=== PATIENT | female | born 1975 | race Hispanic/Latino ===

== ENCOUNTER 2020-06-23 23:00 | Emergency (ER) | payer SELFPAY ==
--- NOTE | 2020-06-23 23:37 | EDPHYS ---
Physician Documentation [facility] Name: Kristian Bee Age: 44 yrs Sex: Female : 1975 Arrival Date: 06/23/2020 Time: 23:02 Bed Waiting Private MD: ED Physician Janna Lilly HPI: 06/23 23:33 This 44 yrs old Female presents to ER via Ambulatory with complaints of Arm jmm Pain. 23:33 The patient or guardian complains of pain. Onset: The symptoms/episode began/occurred 2 jmm month(s) ago. Modifying factors: The symptoms are alleviated by nothing. the symptoms are aggravated by nothing. Associated signs and symptoms: Pertinent negatives: fever, pain, swelling. Patient complaints of right arm pain beginning approx 2 months ago denies trauma, swelling, redness, fever. Denies SOB. Historical: - Allergies: 23:31 No Known Allergies; em - PMHx: 23:31 None; em - PSHx: 23:31 None; em - Immunization history:: Adult Immunizations up to date. - Social history:: Smoking status: Patient denies any tobacco usage or history of. ROS: 23:33 Constitutional: Negative for fever, chills, and weight loss, Cardiovascular: Negative jmm for chest pain, palpitations, and edema, Respiratory: Negative for shortness of breath, cough, wheezing, and pleuritic chest pain. 23:33 MS/extremity: Positive for pain, swelling. 23:33 All other systems are negative. Exam: 23:33 Constitutional: This is a well developed, well nourished patient who is awake, alert, jmm and in no acute distress. Cardiovascular: Regular rate and rhythm. No edema appreciated Respiratory: Normal respirations, no respiratory distress appreciated 23:33 Head/Face: atraumatic. Eyes: EOMI, no conjunctival erythema appreciated ENT: Moist Mucus Membranes Neck: Trachea midline, Supple Chest/axilla: Normal chest wall appearance and motion. Abdomen/GI: Non distended, soft Back: Normal ROM Skin: General appearance color normal 23:33 Musculoskeletal/extremity: no swelling noted to the right upper arm, no erythema, full radial pulse, compartments are soft, NVI. 23:33 Skin: Appearance: Color: normal in color. 23:33 Neuro: Orientation: is normal, Mentation: is normal, Memory: is normal. 23:33 Psych: Behavior/mood is pleasant, cooperative. Vital Signs: 23:29 Pulse 105; Resp 18; Temp 98.2; Pulse Ox 98% on R/A; Weight 81.65 kg; Height 5 ft. 1 in. em (154.94 cm); Pain 8/10; 23:32 BP 138 / 97; em 23:29 Body Mass Index 34.01 (81.65 kg, 154.94 cm) em MDM: 23:35 Data reviewed: vital signs, nurses notes. Counseling: I had a detailed discussion with rl the patient and/or guardian regarding: the historical points, exam findings, and any diagnostic results supporting the discharge/admit diagnosis, the need for outpatient follow up, to return to the emergency department if symptoms worsen or persist or if there are any questions or concerns that arise at home. ED course: Patient is alert and non toxic in appearance in the ED. I do not suspect infectious process. Patient is advised to follow up with ortho for further evaluation. Patient understood and agrees with the plan of care. . 23:36 Patient medically screened. [facility] Administered Medications: No medications were administered Disposition: 06/23/20 23:36 Discharged to Home. Impression: Pain in arm, unspecified. - Condition is Stable. - Discharge Instructions: Musculoskeletal Pain. - Prescriptions for Zanaflex 4 mg Oral Tablet - take 1 tablet by ORAL route every 8 hours As needed; 20 tablet. Medrol ([place]qu[place]) 4 mg Oral Tablets, Dose Pack - take 1 tablet by ORAL route as directed - follow package instructions; 1 packet. - Medication Reconciliation Form, Thank You Letter, Antibiotic Education, Prescription Opioid Use form. - Follow up: Private Physician; When: 2 - 3 days; Reason: Recheck today's complaints, Continuance of care, Re-evaluation by your physician. Follow up: Tiburcio Hernandez MD; When: 2 - 3 days; Reason: Recheck today's complaints, Continuance of care, Re-evaluation by your physician. Follow up: Quique Galvan MD; When: 2 - 3 days; Reason: Recheck today's complaints, Continuance of care, Re-evaluation by your physician. Addendum: 06/26/2020 19:06 Co-signature as Attending Physician, Janna Lilly MD. m a2 Signatures: Syed Landry PA PA [facility] Guerrero Smith, RN RN Janna Lilly MD MD md2 Corrections: (The following items were deleted from the chart) 06/23 23:37 23:36 06/23/2020 23:36 Discharged to Home. Impression: Pain in arm, unspecified. jmm Condition is Stable. Forms are Medication Reconciliation Form, Thank You Letter, Antibiotic Education, Prescription Opioid Use. Follow up: Private Physician; When: 2 - 3 days; Reason: Recheck today's complaints, Continuance of care, Re-evaluation by your physician. [facility] 23:42 23:37 06/23/2020 23:36 Discharged to Home. Impression: Pain in arm, unspecified. em Condition is Stable. Discharge Instructions: Musculoskeletal Pain. Forms are Medication Reconciliation Form, Thank You Letter, Antibiotic Education, Prescription Opioid Use. Follow up: Private Physician; When: 2 - 3 days; Reason: Recheck today's complaints, Continuance of care, Re-evaluation by your physician. Follow up: Tiburcio Hernandez; When: 2 - 3 days; Reason: Recheck today's complaints, Continuance of care, Re-evaluation by your physician. Follow up: Dr. Quique Galvan; When: 2 - 3 days; Reason: Recheck today's complaints, Continuance of care, Re-evaluation by your physician. [facility]
--- NOTE | 2020-06-23 23:37 | ER ---
Nurse's Notes [facility] Name: Kristian Bee Age: 44 yrs Sex: Female : 1975 Arrival Date: 06/23/2020 Time: 23:02 Bed Waiting Private MD: Diagnosis: Pain in arm, unspecified Presentation: 06/23 23:29 Chief complaint: Patient states: spontaneous right arm pain for 2 months, denies em trauma. Coronavirus screen: Client denies travel out of the [place] in the last 14 days. Ebola Screen: Patient negative for fever greater than or equal to 101.5 degrees Fahrenheit, and additional compatible Ebola Virus Disease symptoms Patient denies exposure to infectious person. Patient denies travel to an Ebola-affected area in the 21 days before illness onset. No symptoms or risks identified at this time. Initial Sepsis Screen: Does the patient meet any 2 criteria? No. Patient's initial sepsis screen is negative. Does the patient have a suspected source of infection? No. Patient's initial sepsis screen is negative. Risk Assessment: Do you want to hurt yourself or someone else? Patient reports no desire to harm self or others. Onset of symptoms was June 23, 2020. 23:29 Method Of Arrival: Ambulatory em 23:29 Acuity: REED 4 em Historical: - Allergies: 23:31 No Known Allergies; em - PMHx: 23:31 None; em - PSHx: 23:31 None; em - Immunization history:: Adult Immunizations up to date. - Social history:: Smoking status: Patient denies any tobacco usage or history of. Screenin:32 Abuse screen: Denies threats or abuse. Nutritional screening: No deficits noted. em Tuberculosis screening: No symptoms or risk factors identified. Fall Risk None identified. Assessment: 23:32 General: Appears in no apparent distress. comfortable, Behavior is calm, cooperative, em appropriate for age, Denies fever. Pain: Complains of pain in right arm Pain currently is 8 out of 10 on a pain scale. Neuro: Level of Consciousness is awake, alert, obeys commands, Oriented to person, place, time, situation. Cardiovascular: Capillary refill < 3 seconds Patient's skin is warm and dry. Respiratory: Airway is patent Respiratory effort is even, unlabored, Respiratory pattern is regular, symmetrical. GI: Patient currently denies nausea, vomiting. Derm: Skin is intact, is healthy with good turgor, Skin is pink, warm \T\ dry. Musculoskeletal: Circulation, motion, and sensation intact. Capillary refill < 3 seconds, Range of motion: intact in all extremities. Vital Signs: 23:29 Pulse 105; Resp 18; Temp 98.2; Pulse Ox 98% on R/A; Weight 81.65 kg; Height 5 ft. 1 in. em (154.94 cm); Pain 8/10; 23:32 BP 138 / 97; em 23:29 Body Mass Index 34.01 (81.65 kg, 154.94 cm) em ED Course: 23:02 Patient arrived in ED. bp1 23:30 Triage completed. em 23:31 Arm band placed on. em 23:32 Patient has correct armband on for positive identification. Bed in low position. Call em light in reach. 23:32 No provider procedures requiring assistance completed. Patient did not have IV access em during this emergency room visit. 23:33 [facility] 23:33 Janna Lilly MD is Attending Physician. [facility] 23:37 Tiburcio Hernandez MD is Referral Physician. [facility] 23:37 Quique Galvan MD is Referral Physician. [facility] Administered Medications: No medications were administered Outcome: 23:36 Discharge ordered by . [facility] 23:42 Discharged to home ambulatory. em 23:42 Condition: good 23:42 Discharge instructions given to patient, Instructed on discharge instructions, follow up and referral plans. medication usage, Demonstrated understanding of instructions, follow-up care, medications, Prescriptions given X 2. 23:42 Patient left the ED. em Signatures: Syed Landry PA PA jmm Munoz, Edgar, RN RN em Katherin Juarez bp1
[2020-06-24 10:26] VITALS: TEMP 98.2; O2SAT 98
[2020-06-24 10:27] VITALS: BP 138/97
== END 2020-06-23 23:42 | disposition home or self-care (01) ==
LOC: ER 23:00
DX: M79.601 Pain in right arm (principal)
CPT/HCPCS: 99282